=== PATIENT | female | born 1980 | race Two or more races ===

== ENCOUNTER 2024-02-13 19:12 | Emergency (ER) | payer MEDICAID, OTHER ==
[~2024-02-13] VITALS: Ht 160 cm; Wt 70.0 kg
[2024-02-13] MEDS: HYDROcodone-ACET 10/325MG TAB PO ONE (19:30)
[2024-02-13] MEDS ORDERED: IBUP-1455 PO (22:07)
[2024-02-13] MEDS ORDERED: ACE3T PO (22:07)
[2024-02-14 00:35] VITALS: BP 105/76; PULSE 57; RESP 18; TEMP 97.8; O2SAT 99
== END 2024-02-14 00:36 | disposition home or self-care (01) ==
LOC: ER 19:12 → EDBD 19:12 → ER 02-14 00:36
DX: S16.1XXA Strain of muscle, fascia and tendon at neck level, initial encounter (principal); S39.012A Strain of muscle, fascia and tendon of lower back, initial encounter; V89.2XXA Person injured in unspecified motor-vehicle accident, traffic, initial encounter; Y93.19 Activity, other involving water and watercraft; Y92.89 Other specified places as the place of occurrence of the external cause; Y99.8 Other external cause status
CPT/HCPCS: 70450; 72100; 72125